=== PATIENT | female | born 1995 | race American Indian/Alaskan Native ===

== ENCOUNTER 2020-04-09 15:34 | Emergency (ER) | payer BC, MEDICARE ==
[2020-04-09 15:40] VITALS: BP 120/72
--- NOTE | 2020-04-09 15:50 | Event Note ---
ED Screening Note Date of service: 04/09/20 Time: 15:46 ED Screening Note: 24-year-old -[place] female reports that she is 13 weeks presents to the emergency room for pelvic pressure with cramping not much pain. Patient denies any vaginal bleeding. She is followed by [facility] and was told to come to the emergency room as they had no appointments available today. This initial assessment/diagnostic orders/clinical plan/treatment(s) is/are subject to change based on patients health status, clinical progression and re- assessment by fellow clinical providers in the ED. Further treatment and workup at subsequent clinical providers discretion. Patient/guardian urged not to elope from the ED as their condition may be serious if not clinically assessed and managed. Initial orders include:
[2020-04-09 16:23] LABS: Bacteria,Urine 1+ /HPF (Negative); Bilirubin,Urine NEG (Negative); Blood,Urine NEG (Negative); Color,Urine Yellow (Yellow); Mucus,Urine FEW /HPF; Protein,Urine <15 mg/dL mg/dL (Negative); Urobilinogen,Urine < 2.0 mg/dL (<2.0)
--- NOTE | 2020-04-09 17:10 | Emergency Department Report ---
ED Abdominal Pain HPI - General Chief Complaint: Abdominal Pain Stated Complaint: 13WKS PREG, CRAMPS Time Seen by Provider: 04/09/20 16:18 Source: patient Mode of arrival: Ambulatory Limitations: No Limitations - History of Present Illness Initial Comments: 24-year-old 13-week female presents emergency department complaining of suprapubic pressure with mild symptoms associated with dysuria for the last 3 days she sought guidance from [facility] but was advised to come to the ER for further evaluation and treatment options reports no nausea vomiting no fever chills or sweats no hematuria or chest pain or palpitation MD Complaint: abdominal pain Location: suprapubic Radiation: suprapubic Quality: aching, dull Consistency: constant Worsens With: nothing Associated Symptoms: denies other symptoms. denies: nausea - Related Data Allergies Allergy/AdvReac Type Severity Reaction Status Date / Time No Known Allergies Allergy Verified 04/09/20 15:36 ED Review of Systems ROS: Stated complaint: 13WKS PREG, CRAMPS Other details as noted in HPI Comment: All other systems reviewed and negative ED Past Medical Hx - Past Medical History Previous Medical History?: No - Surgical History Past Surgical History?: No - Social History Smoking Status: Never Smoker Substance Use Type: None ED Physical Exam - General Limitations: No Limitations General appearance: alert, in no apparent distress - Head Head exam: Present: atraumatic, normocephalic - Eye Eye exam: Present: normal appearance - ENT ENT exam: Present: mucous membranes moist - Neck Neck exam: Present: normal inspection - Respiratory Respiratory exam: Present: normal lung sounds bilaterally. Absent: respiratory distress - Cardiovascular Cardiovascular Exam: Present: regular rate, normal rhythm. Absent: systolic murmur, diastolic murmur, rubs, gallop - GI/Abdominal GI/Abdominal exam: Present: soft, tenderness, normal bowel sounds - Extremities Exam Extremities exam: Present: normal inspection - Back Exam Back exam: Present: normal inspection - Neurological Exam Neurological exam: Present: alert, oriented X3 - Psychiatric Psychiatric exam: Present: normal affect, normal mood - Skin Skin exam: Present: warm, dry, intact, normal color. Absent: rash ED Course Vital Signs 04/09/20 15:37 Temperature 98.3 F Pulse Rate 92 H Respiratory 16 Rate Blood Pressure 120/72 O2 Sat by Pulse 99 Oximetry ED Medical Decision Making - Lab Data Lab Results 04/09/20 04/09/20 Range/Units 15:55 16:13 HCG, Quant 10399 H (0-4) mIU/mL Urine Color Yellow (Yellow) Urine Turbidity Slightly-cloudy (Clear) Urine pH 5.0 (5.0-7.0) Ur Specific [place] 1.026 (1.003-1.030) Urine Protein <15 mg/dl (Negative) mg/dL Urine Glucose (UA) Neg (Negative) mg/dL Urine Ketones Neg (Negative) mg/dL Urine Blood Neg (Negative) Urine Nitrite Neg (Negative) Urine Bilirubin Neg (Negative) Urine Urobilinogen < 2.0 (<2.0) mg/dL Ur Leukocyte Esterase Neg (Negative) Urine WBC (Auto) 4.0 (0.0-6.0) /HPF Urine RBC (Auto) 2.0 (0.0-6.0) /HPF U Epithel Cells (Auto) 13.0 (0-13.0) /HPF Urine Bacteria (Auto) 1+ (Negative) /HPF Urine Mucus Few /HPF - Radiology Data Radiology results: report reviewed Ultrasound shows a viable 14-week Critical care attestation.: If time is entered above; I have spent that time in minutes in the direct care of this critically ill patient, excluding procedure time. ED Disposition Clinical Impression: Abdominal pain in Disposition: Z-41 HOSPICE- MED FAC Is pt being admited?: No Does the pt Need Aspirin: No Condition: Stable Instructions: Abdominal Pain (ED), (ED) Referrals: PRIMARY CARE [Primary Care Provider] - 3-5 Days [facility] [Provider Group] - 3-5 Days
--- NOTE | 2020-04-09 18:22 | Ultrasound Report ---
US OB <= 14 weeks fetus INDICATION / CLINICAL INFORMATION: Vaginal bleeding pain. COMPARISON: None available. FINDINGS: There is a single viable intrauterine gestation. heart rate is 156 bpm. The fetus is in cephalic presentation. The placenta is anterior. measurements: BPD 2.6 equal to 14 weeks 4 days Head circumference 9.7 equal to 14 weeks 3 days Abdominal circumference 7.8 equal to 14 weeks 2 days Femur length 1.4 equal to 14 weeks IMPRESSION: 1. Viable single 14 week intrauterine gestation. Signer Name: Antonio Diaz MD Signed: 04/09/2020 6:18 PM Workstation Name: [id number]
== END 2020-04-09 19:05 | disposition home or self-care (01) ==
LOC: ED 15:34
DX: O26.891 Other specified pregnancy related conditions, first trimester (principal); R10.9 Unspecified abdominal pain; Z3A.13 13 weeks gestation of pregnancy
CPT/HCPCS: 36415; 76801; 76805; 81001; 84702